=== PATIENT | male | born 1950 | race Caucasian/White ===

== ENCOUNTER → 2019-03-01 | Day surgery (SDC) | payer OTHER ==
[~2019-03-01] VITALS: Ht 172.7 cm; Wt 86.2 kg
[~2019-03-01] MED LIST: NORCO 5-325 TA1 EAC1 PO
--- NOTE | 2019-03-06 13:46 | PATH ---
[facility] [address] [place] [address] PATHOLOGY RPT PROCEDURE Name: BELÉNANTHONY Room #: REG [facility].#: [id number] Admission: 03/01/19 Date of : 50 Discharge: Report #: [id number] Path Case #: [id number] [facility] Accession Number: [id number] . 01 Material submitted: . back - LIPOMA LEFT UPPER BACK. Modifiers: left, upper . 01 Clinical history: . Soft tissue disorder, unspecified . 02 Diagnosis: "Lipoma left upper back", excision: - Mature fibroadipose tissue consistent with lipoma. (CLW/db; 03/03/2019) LBQ 03/03/2019 1408 Local . 02 Electronically signed: . Cecy Chen MD, Pathologist NPI- [id number] . 01 Gross description: . The specimen is received in formalin, labeled "Anthonyalesha Rosalesa, lipoma left upper back". Received is a segment of yellow-mcneal lobulated tissue measuring 4.3 x 2.6 x 1.9 cm in greatest dimensions. Sectioning reveals bright yellow cut surfaces with no grossly distinct nodules or lesions. The specimen is submitted representatively in cassette A1. (CAA; 03/02/2019) QAC/QAC 03/02/2019 0913 Local . 02 Pathologist provided ICD-10: D17.79 . 02 CPT . 203049 Specimen Comment: A courtesy copy of this report has been sent to Specimen Comment: [phone]. Specimen Comment: Report sent to Performed at: [address], [place] [id number] MD Giovanni Dawkins MD Phone: [phone] Performed at: [address], [place] [id number] MD Akila Chong MD Phone: [phone]
--- NOTE | 2019-04-18 12:03 | O ---
[place] [address] OPERATIVE REPORT Name: MELISSAKADE Room #: REG [facility]#: [id number] Admission: 03/01/19 Attend Phys: Kerwin Reddy MD Discharge: Date of : 50 Report #: [id number] THIS REPORT FOR: //name// CC: [facility] physician/PCP Kerwin Reddy DATE OF SERVICE: 03/01/2019 PREOPERATIVE DIAGNOSIS: Painful mass in the left upper back, likely lipoma. POSTOPERATIVE DIAGNOSIS: Painful mass in the left upper back, likely lipoma. PROCEDURE PERFORMED: Excision of mass in the left upper back/lipoma. SURGEON: Kerwin Reddy MD ANESTHESIA: IV sedation, local 0.25% Marcaine. COMPLICATIONS: None. ESTIMATED BLOOD LOSS: 5 mL. PROCEDURE NOTE: With the patient in the lateral position with the left side up. The left back was prepped and draped in sterile fashion. IV antibiotic was administered. Timeout was performed. A 0.25% Marcaine was used to anesthetize the skin and subcutaneous tissue. A transverse incision was made over the area was marked preoperatively. Caring through the skin, subcutaneous tissue and through the Ev's layer. Once the Ev's layer was opened, which led to the deeper subcutaneous tissue, the lipoma was found. The lipoma was freed from the surrounding subcutaneous tissue and even though it is fairly define the lipoma was not freely mobile had to be dissected out with cautery. The surrounding is normal. The lipoma was completely removed. The lipoma measured 2.5 cm in the craniocaudad dimension and 4.5 cm in width. Again, it is about a centimeter or so a little over 1 cm in thickness. This does not appear to be suspicious. The specimen was sent to pathology. Irrigation was performed. The Ev's layer was closed with 4-0 PDS. Skin was closed with 5-0 PDS. Steri-Strip, 4 x 4, OpSite used for dressing. The patient tolerated the procedure well. <ELECTRONICALLY SIGNED> By: Kerwin Reddy MD 04/18/19 1203 [id number] Kerwin Reddy MD /nt
== END | disposition home or self-care (01) ==
LOC: OR 11:18
DX: R22.2 Localized swelling, mass and lump, trunk (principal); D17.1 Benign lipomatous neoplasm of skin and subcutaneous tissue of trunk; Z98.890 Other specified postprocedural states; Z79.899 Other long term (current) drug therapy; Z86.73 Personal history of transient ischemic attack (TIA), and cerebral infarction without residual deficits; Z87.891 Personal history of nicotine dependence
CPT/HCPCS: 50010; 50101; 50386; 50417; 56524; 56525; 62110; 62850; 70005